=== PATIENT | male | born 1980 | race Two or more races ===

== ENCOUNTER 2023-06-17 18:38 | Emergency (ER) | payer OTHER ==
[~2023-06-17] VITALS: Ht 172.7 cm; Wt 83.0 kg
== END 2023-06-17 22:46 | disposition home or self-care (01) ==
LOC: ER 18:38
DX: S01.21XA Laceration without foreign body of nose, initial encounter (principal); X58.XXXA Exposure to other specified factors, initial encounter; Y93.64 Activity, baseball; Y92.89 Other specified places as the place of occurrence of the external cause; Y99.9 Unspecified external cause status